=== PATIENT | female | born 1990 | race American Indian/Alaskan Native ===

== ENCOUNTER 2019-09-12 10:14 | Emergency (ER) | payer MEDICAID ==
[2019-09-12 10:24] VITALS: BP 177/102
[2019-09-12 12:07] LABS: Basophils % (Auto) 0.4 % (0.0-1.8); Eosinophils % (Auto) 0.3 % (0.0-4.3); Hemoglobin 12.5 gm/dl (10.1-14.3); Lymphocytes # (Auto) 1.7 K/mm3 (1.2-5.4); Lymphocytes % (Auto) 17.4 % (13.4-35.0); Mean Corpuscular HGB Conc 34 % (30-34); Mean Corpuscular Volume 80 fl (79-97); Monocytes # (Auto) 0.7 K/mm3 (0.0-0.8); Platelet Count 366 K/mm3 (140-440); Red Blood Count 4.62 M/mm3 (3.65-5.03); Red Cell Distribution Width 14.9 % (13.2-15.2)
[2019-09-12 13:28] LABS: Bilirubin,Urine NEG (Negative); Blood,Urine LG (Negative); Color,Urine Yellow (Yellow); Mucus,Urine FEW /HPF; Protein,Urine <15 mg/dL mg/dL (Negative); Urobilinogen,Urine < 2.0 mg/dL (<2.0)
== END 2019-09-12 12:30 | disposition left against medical advice (07) ==
LOC: ED 10:14
DX: R51 Headache (principal); Z53.21 Procedure and treatment not carried out due to patient leaving prior to being seen by health care provider
CPT/HCPCS: 36415; 81001; 85025; 87116

== ENCOUNTER 2020-09-07 20:08 | Observation (INO) | payer OTHER ==
--- NOTE | 2020-09-07 22:12 | Emergency Department Report ---
<YAJAIRA MCKEON - Last Filed: 09/07/20 22:15> ED Abdominal Pain HPI - General Chief Complaint: Abdominal Pain Stated Complaint: ABD PAIN PUI?: No Time Seen by Provider: 09/07/20 22:11 - History of Present Illness Initial Comments: This is a 29-year-old female presents to ED complaining of upper abdominal pain x4 days. Patient states pain is throbbing and aching in nature. Patient denies fever, nausea vomiting or diarrhea, chest pain, shortness of breath. Patient denies any radiation elsewhere. Patient states last menstrual period as 08/31/2020 MD Complaint: abdominal pain - Related Data Allergies Allergy/AdvReac Type Severity Reaction Status Date / Time No Known Allergies Allergy Verified 09/08/20 02:17 ED Review of Systems Comment: All other systems reviewed and negative ED Past Medical Hx - Past Medical History Hx Hypertension: Yes - Social History Smoking Status: Never Smoker Substance Use Type: None ED Physical Exam - General General appearance: alert, in no apparent distress - Head Head exam: Present: atraumatic, normocephalic - Eye Eye exam: Present: normal appearance - ENT ENT exam: Present: mucous membranes moist - Neck Neck exam: Present: normal inspection - Respiratory Respiratory exam: Present: normal lung sounds bilaterally. Absent: respiratory distress - Cardiovascular Cardiovascular Exam: Present: regular rate, normal rhythm. Absent: systolic murmur, diastolic murmur, rubs, gallop - GI/Abdominal GI/Abdominal exam: Present: soft, normal bowel sounds. Absent: distended, tenderness, guarding, mass, bruit - Extremities Exam Extremities exam: Present: normal inspection - Back Exam Back exam: Present: normal inspection, full ROM. Absent: CVA tenderness (R), CVA tenderness (L) - Neurological Exam Neurological exam: Present: alert, oriented X3 - Psychiatric Psychiatric exam: Present: normal affect, normal mood - Skin Skin exam: Present: warm, dry, intact, normal color. Absent: rash ED Disposition Clinical Impression: Abdominal pain Qualifiers: Abdominal location: periumbilical Qualified Code(s): R10.33 - Periumbilical pain Acute appendicitis Qualifiers: Acute appendicitis type: unspecified acute appendicitis type Qualified Code(s): K35.80 - Unspecified acute appendicitis Elevated WBC count Qualifiers: Leukocytosis type: unspecified Qualified Code(s): D72.829 - Elevated white blood cell count, unspecified Disposition: DC-09 OP ADMIT IP TO THIS HOSP Condition: Critical <DONALD DE LA VEGA III - Last Filed: 09/08/20 04:31> ED Abdominal Pain HPI - General PUI?: No Source: patient Mode of arrival: Ambulatory Limitations: No Limitations - History of Present Illness Initial Comments: Patient is a 29-year-old female that presents emergency room with complaints of abdominal pain. Patient states the abdominal pain is periumbilical. Patient states that the pain has been on and off for 1 week. Patient states it has been on for 4 days straight. Patient states the pain is worsening. Patient states the pain is severe. Patient states the pain is a 10 out of 10. Patient denies nausea and vomiting and diarrhea. Patient denies fever and chills. Patient denies cough. Patient denies chest pain. Patient denies urinary frequency. Patient denies dysuria. Patient denies recent travel. Patient denies recent international travel. Aquilino patrick denies exposure to the novel coronavirus. Patient denies sick contacts. Patient denies fever and chills. Patient denies cough. Patient denies diarrhea. Patient denies coming in contact with anybody with symptoms of the novel coronavirus. MD Complaint: abdominal pain -: Sudden Location: periumbilical Radiation: none Migration to: no migration Severity: severe Severity scale (0 -10): 10 Quality: stabbing Consistency: constant Improves With: rest Worsens With: movement Associated Symptoms: denies: nausea, vomiting, diarrhea, fever, chills, constipation, dysuria, hematemesis, hematochezia, melena, hematuria, anorexia, syncope - Related Data LMP (females 10-50): last week ED Review of Systems ROS: Stated complaint: ABD PAIN Other details as noted in HPI Constitutional: denies: chills, fever Eyes: denies: eye pain, eye discharge, vision change ENT: denies: ear pain, throat pain Respiratory: denies: cough, shortness of breath, wheezing Cardiovascular: denies: chest pain, palpitations Endocrine: no symptoms reported Gastrointestinal: abdominal pain. denies: nausea, vomiting, diarrhea, constipation, hematemesis, melena, hematochezia Genitourinary: denies: urgency, dysuria, discharge Musculoskeletal: denies: back pain, joint swelling, arthralgia Skin: denies: rash, lesions Neurological: denies: headache, weakness, paresthesias Psychiatric: denies: anxiety, depression Hematological/Lymphatic: denies: easy bleeding, easy bruising ED Past Medical Hx - Past Medical History Previous Medical History?: Yes Hx Hypertension: Yes - Surgical History Past Surgical History?: No - Family History Family history: no significant - Social History Smoking Status: Never Smoker Substance Use Type: None ED Physical Exam - General General appearance: alert, in no apparent distress - Head Head exam: Present: atraumatic, normocephalic - Eye Eye exam: Present: normal appearance - ENT ENT exam: Present: mucous membranes moist - Neck Neck exam: Present: normal inspection - Respiratory Respiratory exam: Present: normal lung sounds bilaterally. Absent: respiratory distress - Cardiovascular Cardiovascular Exam: Present: regular rate, normal rhythm. Absent: systolic murmur, diastolic murmur, rubs, gallop - GI/Abdominal GI/Abdominal exam: Present: soft, tenderness (Periumbilical tenderness to palpation.), normal bowel sounds - Extremities Exam Extremities exam: Present: normal inspection - Back Exam Back exam: Present: normal inspection - Neurological Exam Neurological exam: Present: alert, oriented X3 - Psychiatric Psychiatric exam: Present: normal affect, normal mood - Skin Skin exam: Present: warm, dry, intact, normal color. Absent: rash ED Course Vital Signs 09/07/20 09/08/20 22:05 01:53 Temperature 99.0 F 98.6 F Pulse Rate 105 H 93 H Respiratory 18 16 Rate Blood Pressure 173/116 Blood Pressure 142/97 [Left] O2 Sat by Pulse 98 99 Oximetry - Reevaluation(s) Reevaluation #1: I discussed all results with patient. I discussed plan of care with patient. Patient agrees with plan of care and admission. Patient to be admitted to the hospitalist service. 09/08/20 02:00 - Consultations Consultation #1: I discussed case with Dr. Harrison, general surgery. Dr. Harrison wants patient admitted to the medical service and n.p.o. now. 09/08/20 01:57 Consultation #2: Hospitalist consulted for admission. Hospitalist to admit patient. 09/08/20 02:00 ED Medical Decision Making - Lab Data Result diagrams: 09/07/20 22:48 09/07/20 22:48 - Radiology Data Radiology results: report reviewed CT ABDOMEN AND PELVIS WITH CONTRAST INDICATION / CLINICAL INFORMATION: abd pain. TECHNIQUE: Axial CT images were obtained through the abdomen and pelvis after 100 cc of Omnipaque [address] scans at this location are performed using CT dose reduction for ALARA by means of automated exposure control. COMPARISON: None available. FINDINGS: LOWER CHEST: No significant abnormality. LIVER: No significant abnormality. GALLBLADDER: No significant abnormality. BILE DUCTS: No significant abnormality. PANCREAS: No significant abnormality. SPLEEN: No significant abnormality. ADRENALS: No significant abnormality. RIGHT KIDNEY and URETER: No significant abnormality. LEFT KIDNEY and URETER: No significant abnormality. STOMACH and SMALL BOWEL: No significant abnormality. COLON: No significant abnormality. APPENDIX: The appendix is enlarged and inflamed. There is periappendiceal inflammation. There is no abscess PERITONEUM: No free fluid. No free air. No fluid collection. LYMPH NODES: No significant adenopathy. AORTA and ARTERIES: No significant abnormality. IVC and VEINS: No significant abnormality. URINARY BLADDER: No significant abnormality. REPRODUCTIVE ORGANS: No significant abnormality. ADDITIONAL FINDINGS: None. SKELETAL SYSTEM: No acute abnormality. IMPRESSION: 1. Acute appendicitis. There is no abscess. - Medical Decision Making Patient is a 29-year-old female that presents emergency room with periumbilical abdominal pain. Patient had labs done which shows an elevated WBC. Patient had a CT scan which showed an acute appendicitis. General surgery was consulted. General surgery recommendations were received. Patient admitted to the hospital service for further evaluation treatment. While in ER, the patient was given fluids, pain medications and Zosyn. - Differential Diagnosis Acute sinusitis, periumbilical abdominal pain, UTI, Critical Care Time: Yes Critical care time in (mins) excluding proc time.: 35 Critical care attestation.: If time is entered above; I have spent that time in minutes in the direct care of this critically ill patient, excluding procedure time. Critical Care Time: 35 minutes ED Disposition Is pt being admited?: Yes Does the pt Need Aspirin: No Time of Disposition: 02:01
[2020-09-07 22:29] LABS: Bacteria,Urine 1+ /HPF (Negative); Bilirubin,Urine NEG (Negative); Blood,Urine NEG (Negative); Color,Urine Yellow (Yellow); Protein,Urine <15 mg/dL mg/dL (Negative); Urobilinogen,Urine < 2.0 mg/dL (<2.0)
[2020-09-07 23:17] LABS: Basophils % (Auto) 0.3 % (0.0-1.8); Eosinophils # (Auto) 0.1 K/mm3 (0.0-0.4); Eosinophils % (Auto) 0.4 % (0.0-4.3); Hematocrit 35.7 % (30.3-42.9); Hemoglobin 11.8 gm/dl (10.1-14.3); Lymphocytes # (Auto) 2.7 K/mm3 (1.2-5.4); Lymphocytes % (Auto) 16.9 % (13.4-35.0); Mean Corpuscular HGB Conc 33 % (30-34); Mean Corpuscular Volume 79 fl (79-97); Monocytes # (Auto) 1.1 K/mm3 (0.0-0.8); Monocytes % (Auto) 6.6 % (0.0-7.3); Platelet Count 449 K/mm3 (140-440); Red Blood Count 4.52 M/mm3 (3.65-5.03); Red Cell Distribution Width 14.4 % (13.2-15.2)
[2020-09-07 23:37] LABS: Alanine Aminotransferase 17 units/L (7-56); Blood Urea Nitrogen 9 mg/dL (7-17); Calcium 9.2 mg/dL (8.4-10.2); Hemolysis Index 1
[2020-09-08 00:04] LABS: BUN/Creatinine Ratio 15
--- NOTE | 2020-09-08 01:18 | Cat Scan Report ---
CT ABDOMEN AND PELVIS WITH CONTRAST INDICATION / CLINICAL INFORMATION: abd pain. TECHNIQUE: Axial CT images were obtained through the abdomen and pelvis after 100 cc of Omnipaque [address] scans at this location are performed using CT dose reduction for ALARA by means of automat ed exposure control. COMPARISON: None available. FINDINGS: LOWER CHEST: No significant abnormality. LIVER: No significant abnormality. GALLBLADDER: No significant abnormality. BILE DUCTS: No significant abnormality. PANCREAS: No significant abnormality. SPLEEN: No significant abnormality. ADRENALS: No significant abnormality. RIGHT KIDNEY and URETER: No significant abnormality. LEFT KIDNEY and URETER: No significant abnormality. STOMACH and SMALL BOWEL: No significant abnormality. COLON: No significant abnormality. APPENDIX: The appendix is enlarged and inflamed. There is periappendiceal inflammation. There is no a bscess PERITONEUM: No free fluid. No free air. No fluid collection. LYMPH NODES: No significant adenopathy. AORTA and ARTERIES: No significant abnormality. IVC and VEINS: No significant abnormality. URINARY BLADDER: No significant abnormality. REPRODUCTIVE ORGANS: No significant abnormality. ADDITIONAL FINDINGS: None. SKELETAL SYSTEM: No acute abnormality. IMPRESSION: 1. Acute appendicitis. There is no abscess. Signer Name: Jose Glaser MD Signed: 09/08/2020 1:14 AM Workstation Name: [id number]
[2020-09-08] MEDS ORDERED: HYDROmorphone 1 MG/1 ML INJ IV ONE (01:49)
[2020-09-08] MEDS ORDERED: PIPERACIL/TAZOBACTA 4.5/NS 100 4.5 GM/100 ML VIAL IV ONE (01:49)
[2020-09-08] MEDS ORDERED: SODIUM CHLORIDE 0.9% 1000 ML 1,000 ML IV ONE (01:49)
[2020-09-08] MEDS ORDERED: ONDANSETRON 4 MG/2 ML INJ IV ONE (01:57)
[2020-09-08] MEDS ORDERED: ONDANSETRON 4 MG/2 ML INJ IV PRN ×2 (02:12→10:14)
[2020-09-08] MEDS ORDERED: MORPHINE 2 MG/1 ML INJ IV PRN (02:12)
[2020-09-08] MEDS ORDERED: ACETAMINOPHEN 325 MG TAB PO PRN (02:12)
--- NOTE | 2020-09-08 02:19 | History and Physical Report ---
History of Present Illness Date of examination: 09/08/20 Chief complaint: Abdominal pain History of present illness: 29-year-old female was brought to the emergency room because of upper abdominal pain x4 days. Patient complained of abdominal pain which is throbbing and aching in nature. Patient denies fever, nausea vomiting or diarrhea, chest pain, shortness of breath. Patient denies any radiation elsewhere. Patient states last menstrual period as 08/31/2020 In the emergency room patient is found to have acute appendicitis. Medications and Allergies Allergies Allergy/AdvReac Type Severity Reaction Status Date / Time No Known Allergies Allergy Unverified 09/12/19 10:24 Active Meds: Active Medications Acetaminophen (Acetaminophen 325 Mg Tab) 650 mg PO Q4H PRN PRN Reason: Pain MILD(1-3)/Fever >100.5/ARCEO Sodium Chloride (Nacl 0.9% 1000 Ml) 1,000 mls @ 999 mls/hr IV BOLUS ONE Stop: 09/08/20 02:49 Last Admin: 09/08/20 02:04 Dose: 999 mls/hr Documented by: Piperacillin Sod/Tazobactam Sod (Zosyn/Ns 4.5gm/100ml) 4.5 gm in 100 mls @ 200 mls/hr IV ONCE ONE; Protocol Stop: 09/08/20 02:18 Last Admin: 09/08/20 02:04 Dose: 200 mls/hr Documented by: Ondansetron HCl (Ondansetron 4 Mg/2 Ml Inj) 4 mg IV Q8H PRN PRN Reason: Nausea And Vomiting Sodium Chloride (Sodium Chloride 0.9% 10 Ml Flush Syringe) 10 ml IV BID [facility] Review of Systems Gastrointestinal: abdominal pain, no nausea, no vomiting, no diarrhea Exam - Constitutional Vitals: Temp Pulse Resp BP Pulse Ox 98.6 F 93 H 16 142/97 99 09/08/20 01:53 09/08/20 01:53 09/08/20 01:53 09/08/20 01:53 09/08/20 01:53 General appearance: Present: no acute distress, well-nourished - EENT Eyes: Present: PERRL ENT: hearing intact, clear oral mucosa - Neck Neck: Present: supple, normal ROM - Respiratory Respiratory effort: normal Respiratory: bilateral: CTA - Cardiovascular Heart Sounds: Present: S1 & S2. Absent: rub, click - Extremities Extremities: pulses symmetrical, No edema Peripheral Pulses: within normal limits - Abdominal General gastrointestinal: Present: soft, tender, non-distended, normal bowel sounds. Absent: non-tender Female genitourinary: Present: normal - Integumentary Integumentary: Present: clear, warm, dry - Musculoskeletal Musculoskeletal: gait normal, strength equal bilaterally - Psychiatric Psychiatric: appropriate mood/affect, intact judgment & insight - Neurologic Neurologic: CNII-XII intact, moves all extremities Results - Labs CBC & Chem 7: 09/07/20 22:48 09/07/20 22:48 Labs: Laboratory Last Values WBC 16.1 K/mm3 (4.5-11.0) H 09/07/20 22:48 RBC 4.52 M/mm3 (3.65-5.03) 09/07/20 22:48 Hgb 11.8 gm/dl (10.1-14.3) 09/07/20 22:48 Hct 35.7 % (30.3-42.9) 09/07/20 22:48 MCV 79 fl (79-97) 09/07/20 22:48 MCH 26 pg (28-32) L 09/07/20 22:48 MCHC 33 % (30-34) 09/07/20 22:48 RDW 14.4 % (13.2-15.2) 09/07/20 22:48 Plt Count 449 K/mm3 (140-440) H 09/07/20 22:48 Lymph % (Auto) 16.9 % (13.4-35.0) 09/07/20 22:48 Sac % (Auto) 6.6 % (0.0-7.3) 09/07/20 22:48 Eos % (Auto) 0.4 % (0.0-4.3) 09/07/20 22:48 Baso % (Auto) 0.3 % (0.0-1.8) 09/07/20 22:48 Lymph # (Auto) 2.7 K/mm3 (1.2-5.4) 09/07/20 22:48 Sac # (Auto) 1.1 K/mm3 (0.0-0.8) H 09/07/20 22:48 Eos # (Auto) 0.1 K/mm3 (0.0-0.4) 09/07/20 22:48 Baso # (Auto) 0.0 K/mm3 (0.0-0.1) 09/07/20 22:48 Seg Neutrophils % 75.8 % (40.0-70.0) H 09/07/20 22:48 Seg Neutrophils # 12.2 K/mm3 (1.8-7.7) H 09/07/20 22:48 Sodium 134 mmol/L (137-145) L 09/07/20 22:48 Potassium 4.1 mmol/L (3.6-5.0) 09/07/20 22:48 Chloride 99.9 mmol/L (98-107) 09/07/20 22:48 Carbon Dioxide 26 mmol/L (22-30) 09/07/20 22:48 Anion Gap 12 mmol/L 09/07/20 22:48 BUN 9 mg/dL (7-17) 09/07/20 22:48 Creatinine 0.6 mg/dL (0.6-1.2) 09/07/20 22:48 Estimated GFR > 60 ml/min 09/07/20 22:48 BUN/Creatinine Ratio 15 % 09/07/20 22:48 Glucose 90 mg/dL (65-100) 09/07/20 22:48 Calcium 9.2 mg/dL (8.4-10.2) 09/07/20 22:48 Total Bilirubin 0.20 mg/dL (0.1-1.2) 09/07/20 22:48 AST 17 units/L (5-40) 09/07/20 22:48 ALT 17 units/L (7-56) 09/07/20 22:48 Alkaline Phosphatase 97 units/L (35-129) 09/07/20 22:48 Total Protein 8.2 g/dL (6.3-8.2) 09/07/20 22:48 Albumin 4.0 g/dL (3.9-5) 09/07/20 22:48 Albumin/Globulin Ratio 1.0 % 09/07/20 22:48 Lipase 34 units/L (13-60) 09/07/20 22:48 HCG, Qual Negative (Negative) 09/07/20 22:48 Urine Color Yellow (Yellow) 09/07/20 22:15 Urine Turbidity Slightly-cloudy (Clear) 09/07/20 22:15 Urine pH 7.0 (5.0-7.0) 09/07/20 22:15 Ur Specific Roosevelt 1.010 (1.003-1.030) 09/07/20 22:15 Urine Protein <15 mg/dl mg/dL (Negative) 09/07/20 22:15 Urine Glucose (UA) Neg mg/dL (Negative) 09/07/20 22:15 Urine Ketones Neg mg/dL (Negative) 09/07/20 22:15 Urine Blood Neg (Negative) 09/07/20 22:15 Urine Nitrite Neg (Negative) 09/07/20 22:15 Urine Bilirubin Neg (Negative) 09/07/20 22:15 Urine Urobilinogen < 2.0 mg/dL (<2.0) 09/07/20 22:15 Ur Leukocyte Esterase Sm (Negative) 09/07/20 22:15 Urine WBC (Auto) 6.0 /HPF (0.0-6.0) 09/07/20 22:15 Urine RBC (Auto) 4.0 /HPF (0.0-6.0) 09/07/20 22:15 U Epithel Cells (Auto) 7.0 /HPF (0-13.0) 09/07/20 22:15 Urine Bacteria (Auto) 1+ /HPF (Negative) 09/07/20 22:15 Knutson/IV: IV Catheter Type [Right INT / Saline Lock Antecubital] IV Catheter Type [ZOSYN/NS 4. INT / Saline Lock 5GM/100ML 4.5 gm In 100 ml @ 200 mls/hr IV ONCE ONE Rx#: [id number]] Assessment and Plan - Patient Problems (1) Abdominal pain Current Visit: Yes Status: Acute Qualifiers: Abdominal location: periumbilical Qualified Code(s): R10.33 - Periumbilical pain Plan to address problem: Admit the patient to the medical floor. Nothing by mouth. IV fluid D5 half- normal saline at the rate of 100 cc/h. Pepcid 20 mg IV every 12 hours. Zosyn 4.5 g IV every 8 hours. Morphine 1 to 2 mg IV every 4 hours as needed. Will consult surgery for possible appendectomy in the morning. Recheck CBC BMP in the morning. Heparin 5000 units subcu every 8 hours for DVT prophylaxis and Pepcid for GI prophylaxis (2) Acute appendicitis Current Visit: Yes Status: Acute Qualifiers: Acute appendicitis type: unspecified acute appendicitis type Qualified Code(s): K35.80 - Unspecified acute appendicitis Plan to address problem: Zosyn 4.5 g IV every 8 hours. Morphine 1 to 2 mg IV every 4 hours as needed. Will consult surgery for possible appendectomy in the morning. Recheck CBC BMP in the morning. (3) Elevated WBC count Current Visit: Yes Status: Acute Qualifiers: Leukocytosis type: unspecified Qualified Code(s): D72.829 - Elevated white blood cell count, unspecified Plan to address problem: Zosyn 4.5 g IV every 8 hours. Will consult surgery for possible appendectomy in the morning. Recheck CBC BMP in the morning.
[2020-09-08] MEDS ORDERED: D5W/0.45% NACL 1,000 ML IV SCH (03:00)
[2020-09-08] MEDS: HEPARIN 5,000 UNIT/1 ML VIAL SUB-Q SCH ×2 (06:27→13:19)
[2020-09-08] MEDS ORDERED: FAMOTIDINE 20 MG/2 ML INJ IV SCH (08:00)
[2020-09-08] MEDS ORDERED: HYDROmorphone 1 MG/1 ML INJ ONE (09:22)
[2020-09-08] MEDS ORDERED: propofoL 200 MG/20 ML VIAL IV ONE (09:22)
[2020-09-08] MEDS ORDERED: LIDOCAINE MPF (2%) 20 MG/1 ML VIAL 5 ML ONE (09:23)
[2020-09-08] MEDS ORDERED: ROCURONIUM 50 MG/5 ML INJ IV ONE (09:27)
--- NOTE | 2020-09-08 09:36 | Anesthesia Consultation ---
Anesthesia Consult and Med Hx Date of service: 09/08/20 - Airway Anesthetic Teeth Evaluation: Good ROM Head & Neck: Adequate Mental/Hyoid Distance: Adequate Mallampati Class: Class III Intubation Access Assessment: Possibly Difficult - Pre-Operative Health Status ASA Pre-Surgery Classification: ASA3 Proposed Anesthetic Plan: General - Pulmonary Hx Asthma: No COPD: No Hx Pneumonia: No - Cardiovascular System Hx Hypertension: Yes (on Lisinopril at home) - Endocrine Hx End Stage Renal Disease: No - Other Systems Hx Obesity: Yes (Morbid obesity, BMI 40.7) - Additional Comments Anesthesia Medical History Comments: scheduled for laparoscopic appendectomy
--- NOTE | 2020-09-08 09:37 | Anesthesia Day of Surgery ---
Anesthesia Day of Surgery - Day of Surgery Patient Examined: Yes Patient H&P Reviewed: Yes Patient is NPO: Yes
[2020-09-08] MEDS ORDERED: LIDOCAINE (1%) 10 MG/1 ML VIAL 20 ML MDV ONE (09:43)
[2020-09-08] MEDS ORDERED: BUPIVACAINE/PF (0.5%) 5 MG/1 ML 30 ML VIAL INFILTRATI ONE (09:44)
--- NOTE | 2020-09-08 09:47 | Consultation ---
History of Present Illness Consult date: 09/08/20 Reason for consult: abdominal pain Chief complaint: abdominal pain - History of present illness History of present illness: 29-year-old female with past medical history of hypertension and obesity who pre sents to the emergency room with 1 week of worsening abdominal pain. Patient states the pain is periumbilical and towards the right-hand side and suprapubic area. It is sharp and gradually got very severe which prompted her visit to the ER last night. She has never had pain like this in the past. She denies fevers or chills, chest pain, shortness of breath, nausea, vomiting. She is having nor mal bowel movements and is without dysuria. Past History Past Medical History: hypertension, other (Obesity) Past Surgical History: No surgical history Social history: no significant social history Family history: no significant family history Medications and Allergies Allergies Allergy/AdvReac Type Severity Reaction Status Date / Time No Known Allergies Allergy Verified 09/08/20 02:17 Active Meds: Active Medications Acetaminophen (Acetaminophen 325 Mg Tab) 650 mg PO Q4H PRN PRN Reason: Pain MILD(1-3)/Fever >100.5/ARCEO Famotidine (Famotidine 20 Mg/2 Ml Inj) 20 mg IV BID [facility] Last Admin: 09/08/20 09:24 Dose: 20 mg Documented by: Heparin Sodium (Porcine) (Heparin 5,000 Unit/1 Ml Vial) 5,000 unit SUB-Q Q8HR [facility] Last Admin: 09/08/20 06:27 Dose: 5,000 unit Documented by: Dextrose/Sodium Chloride (D5/0.45ns) 1,000 mls @ 100 mls/hr IV DIRECT [facility] Piperacillin Sod/Tazobactam Sod (Zosyn/Ns 4.5gm/100ml) 4.5 gm in 100 mls @ 200 mls/hr IV Q8H [facility]; Protocol Last Admin: 09/08/20 09:24 Dose: 200 mls/hr Documented by: Morphine Sulfate (Morphine 2 Mg/1 Ml Inj) 2 mg IV Q4H PRN PRN Reason: Pain, Moderate (4-6) Ondansetron HCl (Ondansetron 4 Mg/2 Ml Inj) 4 mg IV Q8H PRN PRN Reason: Nausea And Vomiting Sodium Chloride (Sodium Chloride 0.9% 10 Ml Flush Syringe) 10 ml IV BID [facility] Last Admin: 09/08/20 09:24 Dose: Not Given Documented by: Sodium Chloride (Sodium Chloride 0.9% 10 Ml Flush Syringe) 10 ml IV PRN PRN PRN Reason: LINE FLUSH Review of Systems All systems: negative (10 point ROS performed and negative except for that listed in HPI) Exam Vital Signs Temp Pulse Resp BP Pulse Ox 99.0 F 105 H 18 173/116 98 09/07/20 22:05 09/07/20 22:05 09/07/20 22:05 09/07/20 22:05 09/07/20 22:05 Narrative exam: Gen.: Awake, alert, oriented 3. No apparent distress ENT: Trachea midline. No lymphadenopathy. No scleral icterus or conjunctival pallor CV: S1, S2 present Respiratory: No audible wheezes Abdomen: Soft, nondistended, obese, mild diffuse tenderness to palpation but very tender in the right lower quadrant. No rebound, rigidity, guarding Extremities: No clubbing, cyanosis, edema Results - Labs 09/07/20 22:48 09/07/20 22:48 Abnormal lab results 09/07/20 09/07/20 Range/Units 22:48 22:48 WBC 16.1 H (4.5-11.0) K/mm3 MCH 26 L (28-32) pg Plt Count 449 H (140-440) K/mm3 Mason # (Auto) 1.1 H (0.0-0.8) K/mm3 Seg Neutrophils % 75.8 H (40.0-70.0) % Seg Neutrophils # 12.2 H (1.8-7.7) K/mm3 Sodium 134 L (137-145) mmol/L Diabetes panel 09/07/20 Range/Units 22:48 Sodium 134 L (137-145) mmol/L Potassium 4.1 (3.6-5.0) mmol/L Chloride 99.9 (98-107) mmol/L Carbon Dioxide 26 (22-30) mmol/L BUN 9 (7-17) mg/dL Creatinine 0.6 (0.6-1.2) mg/dL Glucose 90 (65-100) mg/dL Calcium 9.2 (8.4-10.2) mg/dL AST 17 (5-40) units/L ALT 17 (7-56) units/L Alkaline Phosphatase 97 (35-129) units/L Total Protein 8.2 (6.3-8.2) g/dL Albumin 4.0 (3.9-5) g/dL Calcium panel 09/07/20 Range/Units 22:48 Calcium 9.2 (8.4-10.2) mg/dL Albumin 4.0 (3.9-5) g/dL Pituitary panel 09/07/20 Range/Units 22:48 Sodium 134 L (137-145) mmol/L Potassium 4.1 (3.6-5.0) mmol/L Chloride 99.9 (98-107) mmol/L Carbon Dioxide 26 (22-30) mmol/L BUN 9 (7-17) mg/dL Creatinine 0.6 (0.6-1.2) mg/dL Glucose 90 (65-100) mg/dL Calcium 9.2 (8.4-10.2) mg/dL Adrenal panel 09/07/20 Range/Units 22:48 Sodium 134 L (137-145) mmol/L Potassium 4.1 (3.6-5.0) mmol/L Chloride 99.9 (98-107) mmol/L Carbon Dioxide 26 (22-30) mmol/L BUN 9 (7-17) mg/dL Creatinine 0.6 (0.6-1.2) mg/dL Glucose 90 (65-100) mg/dL Calcium 9.2 (8.4-10.2) mg/dL Total Bilirubin 0.20 (0.1-1.2) mg/dL AST 17 (5-40) units/L ALT 17 (7-56) units/L Alkaline Phosphatase 97 (35-129) units/L Total Protein 8.2 (6.3-8.2) g/dL Albumin 4.0 (3.9-5) g/dL - Imaging CT scan - abdomen: report reviewed, image reviewed CT scan - pelvis: report reviewed, image reviewed Assessment and Plan 29-year-old female with acute appendicitis Plan: 1. NPO 2. IVF 3. IV abx 4. prn pain control 5. DVT ppx 6. OOB 7. Discussed the results of CT scan with the patient. Recommend appendectomy. I discussed all risk, benefits, alternatives to surgery and questions were answered. Consent obtained. Patient added to the OR schedule for today. 8. DC planning after surgery today Thank you for this consultation. Please call with any questions or concerns. Evaluation and treatment of this patient was during the time of the national and state emergency arising from COVID19 coronavirus pandemic. Treatment and procedures performed meet the current and available best practice and guidelines for patient during the COVID pandemic.
[2020-09-08] MEDS ORDERED: PIPERACIL/TAZOBACTA 4.5/NS 100 4.5 GM/100 ML VIAL IV SCH (10:00)
[2020-09-08] MEDS ORDERED: HYDROmorphone 1 MG/1 ML INJ IV PRN ×2 (10:14)
[2020-09-08] MEDS ORDERED: SODIUM CHLORIDE 0.9% 1000 ML 1,000 ML ONE (10:48)
[2020-09-08] MEDS ORDERED: ONDANSETRON 4 MG/2 ML INJ ONE (11:58)
[2020-09-08] MEDS ORDERED: dexAMETHasone 20 MG/5 ML VIAL ONE (11:58)
[2020-09-08] MEDS ORDERED: NEOSTIGMINE 10MG/10 ML INJ MDV ONE (11:58)
[2020-09-08] MEDS ORDERED: GLYCOPYRROLATE 0.4 MG/2 ML INJ ONE (11:58)
[2020-09-08] MEDS ORDERED: oxyCODONE /ACETAMINOPHEN 5-325MG TAB PO PRN (12:10)
--- NOTE | 2020-09-08 12:10 | Operative Report ---
Operative Report Operative Report: Date of operation: 09/08/20 Preoperative diagnosis: acute appendicitis Postoperative diagnosis: acute gangrenous appendicitis Procedure performed: Laparoscopic appendectomy Surgeon: Naomy Harrison DO Anesthesia: GETA, local Findings: [Dilated, thickened, inflammed appendix with inflamatory adhesions to small bowel and colon. Not perforated. EBL:75cc Specimen: appendix Disposition/Condition: stable to PACU HPI and indication: 29 yo F presented to ER with abdomina pain for 1 week which gradually worsened and became severe. She was found to have an elevated WBC and acute appendicitis on CT scan. Appendectomy was recommended. All risk, benefits, alternatives to surgery were discussed with patient questions answered. Consent was obtained for laparoscopic appendectomy, possible open. Procedure in detail: Patient was identified in the preop area and taken back to the OR and placed on the OR table in supine position. After anesthesia was induced a molina catheter was steriley placed by the circulating nurse. The left arm was tucked and all bony prominences padded appropriately. A time out was performed. Local anesthetic was infilitrated into all skin incision sites. A supraumbilical incision was made and veress needle inserted. The positioning of the veress needle was confirmed using the saline drop test. The abdomen was then insufflated to 15mmHg without incident. The veress needle was withdrawn and a 5mm Optiview trocar was placed under direct visualization. The abdomen was inspected and no underlying injury to the abdominal structures was identified. A 5mm suprapubic trocar and a 12 mm LLQ trocar were placed under direct visualization. The patient was placed in Trendelenburg and tilted to the left. The appendix was identified and noted to be thickened and inflamed with adhesions from the distal appendix to the mesentery of the adjacent small bowel and to an epiploic appendage of the sigmoid colon. These adhesions were taken down with great care using blunt dissection. Once the appendix was freed from the structures the mesoappendix was dissected. The mesoappendix was also very thickened and inflamed. The base of the appendix was identified. The mesentery of the appendix was ligated using the harmonic scalpel. A small amount of venous bleeding from the inflamed mesoappendix was controlled using an Endo Clip. The dissection was carried down to the base of the appendix. The base of the appendix was transected using an ethicon flex stapler 45mm white load. The appendix was placed into an endocatch bag and removed via the 12 mm port. This was passed off the table as specimen. The staple line and mesentery were then inspected and no bleeding visualized. This area was irrigated and hemostasis was ensured. The 12mm port fascia was closed with a single interrupted 0 vicryl stitch using the Stephen Sharpe device. The remaining ports were removed under direct visualization and the abdomen desufflated. . All skin incisions were closed using 4-0 monocryl subcuticular stitches and skin glue. Additional local anesthetic was infiltrated into the skin. At the end of the case, all sponge, instrument, sharp counts were correct x2. The patient was awoken from anesthesia, molina catheter removed, and she was was taken to PACU in stable condition.
--- NOTE | 2020-09-08 12:15 | Discharge Summary ---
Providers - Providers Date of Admission: 09/08/20 02:02 Date of discharge: 09/08/20 Attending physician: MOHIT LANGE 09/08/20 01:58 Consult to Physician [CONS] Routine Comment: Consulting Provider: GILBERT CAMARILLO Physician Instructions: Reason For Exam: api Primary care physician: TEST SPECIALIST Hospitalization Condition: Critical Hospital course: 29-year-old female was brought to the emergency room because of upper abdominal pain x4 days. Patient complained of abdominal pain which is throbbing and aching in nature. Patient denies fever, nausea vomiting or diarrhea, chest pain, shortness of breath. Patient denies any radiation elsewhere. Patient states last menstrual period as 08/31/2020 In the emergency room patient is found to have acute appendicitis. She was admitted for surgery evaluation. She was started on antibiotics. She had laparascopic appendectomy and had no complications. She tolerated her meal and will be discharged home to follow up with surgery in 1-2 weeks. Disposition: - TO HOME OR SELFCARE Time spent for discharge: 32 mins - Discharge Diagnoses (1) HTN (hypertension) Status: Acute (2) Acute appendicitis Status: Acute Qualifiers: Acute appendicitis type: unspecified acute appendicitis type Qualified Code(s): K35.80 - Unspecified acute appendicitis Core Measure Documentation - Palliative Care Palliative Care/ Comfort Measures: Not Applicable - Core Measures Any of the following diagnoses?: none Exam - Constitutional Vitals: Temp Pulse Resp BP Pulse Ox 97.8 F 80 18 151/100 100 09/08/20 03:58 09/08/20 03:58 09/08/20 03:58 09/08/20 03:58 09/08/20 03:58 General appearance: Present: no acute distress, well-nourished - EENT Eyes: Present: PERRL ENT: hearing intact, clear oral mucosa - Neck Neck: Present: supple, normal ROM - Respiratory Respiratory effort: normal Respiratory: bilateral: CTA - Cardiovascular Heart Sounds: Present: S1 & S2. Absent: rub, click - Extremities Extremities: pulses symmetrical, No edema Peripheral Pulses: within normal limits - Abdominal General gastrointestinal: Present: soft, tender (Slight tenderness around the RLQ, umbilical areas. no rebound tenderness), non-distended, normal bowel sounds Female genitourinary: Present: normal - Integumentary Integumentary: Present: clear, warm, dry - Musculoskeletal Musculoskeletal: gait normal, strength equal bilaterally - Psychiatric Psychiatric: appropriate mood/affect, intact judgment & insight - Neurologic Neurologic: CNII-XII intact, moves all extremities Plan Activity: no restrictions Diet: low salt Additional Instructions: Continue pain medications. Follow up with surgery in 1-2 weeks Follow up with: PRIMARY CARE, [Primary Care Provider] - 7 Days GILBERT CAMARILLO DO [Staff Physician] - 7 Days Prescriptions: Oxycodone HCl/Acetaminophen [Percocet 10/325 mg] 1 each PO Q6HR PRN 3 Days #10 tablet PRN Reason: Pain
--- NOTE | 2020-09-08 14:39 | Post Anesthesia Evaluation ---
- Post Anesthesia Evaluation Patient Participated: Yes Airway Patent: Yes Stable Respiratory Function: Yes Nausea/Vomiting: No Temp > 96.8F: Yes Pain Manageable: Yes Adequeate Hydration: Yes Anesthesia Complications: No Block Receding Appropriately: Not Applicable Patient on Ventilator: No
[2020-09-08 16:53] VITALS: BP 143/86
== END 2020-09-08 18:24 | disposition home or self-care (01) ==
LOC: ED 20:08 → 3A 09-08 02:02 → 3B 09-08 02:59
PROVIDERS: ADMIT Hospitalist; ATTEND Internal Medicine
DX: K35.80 Unspecified acute appendicitis (principal); D72.829 Elevated white blood cell count, unspecified; I10 Essential (primary) hypertension
CPT/HCPCS: 36415; 44970; 74177; 80053; 81001; 83690; 84703; 85025; 88304; 96365; 96366; 96372; 96375; 99291; G0378; J1100; J1170; J1644; J2405; J2543; J2704; J2710; J7030; Q9967